=== PATIENT | male | born 2005 | race Asian ===

== ENCOUNTER 2023-10-31 22:46 | Emergency (ER) | payer OTHER ==
[~2023-10-31] VITALS: Ht 188 cm; Wt 70.3 kg
[2023-11-01] MEDS ORDERED: PANTOPRAZOLE 40 MG VIAL ONE (00:50)
[2023-11-01] MEDS ORDERED: LIDOCAINE VISCOUS 2% UD 15 ML UDC ONE (00:51)
[2023-11-01] MEDS ORDERED: MAG HYDROX/AL HYDROX/SIMETH 30 ML UDC ONE (00:51)
[2023-11-01] MEDS: MAG HYDROX/AL HYDROX/SIMETH 30 ML UDC PO ONE (01:01)
[2023-11-01] MEDS: IV NS 0.9% 1,000 ML BAG IV ONE (01:01)
[2023-11-01] MEDS: LIDOCAINE VISCOUS 2% UD 15 ML UDC MM ONE (01:01)
[2023-11-01] MEDS: PANTOPRAZOLE 40 MG VIAL IV ONE (01:01)
[2023-11-01 01:06] LABS: BASOPHILS % (AUTO) 0.1 % (0.0-2.0); EOSINOPHILS # (AUTO) 0.1 K/uL (0.0-0.7); EOSINOPHILS % (AUTO) 2.2 % (0.0-6.0); HEMATOCRIT 45 % (39-51); HEMOGLOBIN 14.8 g/dL (13.5-17.5); LYMPHOCYTES # (AUTO) 1.7 K/uL (0.8-4.8); MEAN CORPUSCULAR HEMOGLOBIN 30 PG (26.0-33.0); MEAN CORPUSCULAR HGB CONC 33 g/dl (31.0-36.0); MEAN CORPUSCULAR VOLUME 91 fL (80-96); MONOCYTES # (AUTO) 0.4 K/uL (0.1-1.30); MONOCYTES % (AUTO) 6.2 % (2.0-12.0); NEUTROPHILS # (AUTO) 4.3 K/uL (1.8-8.9); NEUTROPHILS % (AUTO) 65.5 % (43.0-81.0); PLATELET COUNT (AUTO) 220 K/uL (150-450); RED BLOOD CELL COUNT(AUTO) 4.94 MIL/uL (4.5-6.0); RED CELL DISTRIBUTION WIDTH 13.3 % (11.5-15.0); WHITE BLOOD COUNT (AUTO) 6.5 K/uL (4.3-11.0)
[2023-11-01 01:40] LABS: ALBUMIN 3.8 g/dL (3.4-5.0); BILIRUBIN,DIRECT 0.1 mg/dL (0.0-0.2); BILIRUBIN,TOTAL 0.6 mg/dL (0.2-1.0); CALCIUM, SERUM 9.7 mg/dL (8.5-10.1); CREATININE 1.1 mg/dL (0.6-1.3); POTASSIUM 3.9 mmol/L (3.5-5.1); TOTAL PROTEIN, SERUM 7.8 g/dL (6.4-8.2)
[2023-11-01] MEDS ORDERED: PANT40TA2 PO (02:11)
[2023-11-01 02:40] VITALS: BP 152/78; TEMP 98.1; O2SAT 100
== END 2023-11-01 02:40 | disposition home or self-care (01) ==
LOC: ER 22:52
DX: R10.13 Epigastric pain (principal); R03.0 Elevated blood-pressure reading, without diagnosis of hypertension
CPT/HCPCS: 99285; 96374; 76705; 96361; 93005; 85025; 80048; 80076; 36415; J7030; J2470

== ENCOUNTER 2024-02-10 23:49 | Emergency (ER) | payer OTHER ==
[~2024-02-10] VITALS: Ht 185.4 cm; Wt 68.0 kg
[~2024-02-10 23:49] MED LIST: PANT40TA2 PO
[2024-02-11 00:12] VITALS: TEMP 98.1
[2024-02-11] MEDS ORDERED: CYCLOBENZAPRINE 10 MG TABLET ONE (00:30)
[2024-02-11] MEDS ORDERED: IBUPROFEN 400 MG TABLET ONE (00:30)
[2024-02-11] MEDS: IBUPROFEN 400 MG TABLET PO ONE (00:35)
[2024-02-11] MEDS: CYCLOBENZAPRINE 10 MG TABLET PO ONE (00:35)
[2024-02-11 01:51] VITALS: BP 141/78; O2SAT 99
== END 2024-02-11 01:51 | disposition home or self-care (01) ==
LOC: ER 23:51
DX: S13.4XXA Sprain of ligaments of cervical spine, initial encounter (principal); S09.90XA Unspecified injury of head, initial encounter; M25.551 Pain in right hip; G44.309 Post-traumatic headache, unspecified, not intractable; Z79.899 Other long term (current) drug therapy; V43.52XA Car driver injured in collision with other type car in traffic accident, initial encounter; Y93.89 Activity, other specified; Y92.488 Other paved roadways as the place of occurrence of the external cause; Y99.8 Other external cause status
CPT/HCPCS: 70450-TC; 73502

== ENCOUNTER 2024-04-23 02:03 | Emergency (ER) | payer MEDICAID, OTHER ==
[~2024-04-23] VITALS: Ht 182.9 cm; Wt 70.3 kg
[2024-04-23 02:20] VITALS: BP 142/84; TEMP 98.1
[2024-04-23 06:48] VITALS: O2SAT 98
== END 2024-04-23 06:52 | disposition home or self-care (01) ==
LOC: ER 02:09
DX: S80.212A Abrasion, left knee, initial encounter (principal); M25.562 Pain in left knee; R00.2 Palpitations; Z79.899 Other long term (current) drug therapy; X58.XXXA Exposure to other specified factors, initial encounter; Y93.67 Activity, basketball; Y92.310 Basketball court as the place of occurrence of the external cause; Y99.8 Other external cause status
CPT/HCPCS: 73564-TC

== ENCOUNTER 2024-06-25 09:11 | Emergency (ER) | payer OTHER ==
[~2024-06-25] VITALS: Ht 185.4 cm; Wt 68.2 kg
[2024-06-25 09:29] VITALS: BP 125/81; TEMP 98; O2SAT 99
[2024-06-25] MEDS ORDERED: CETI10CA8 PO (09:43)
[2024-06-25] MEDS ORDERED: AMOX-430 PO (09:43)
== END 2024-06-25 09:49 | disposition home or self-care (01) ==
LOC: ER 09:13
DX: J32.9 Chronic sinusitis, unspecified (principal); Z79.899 Other long term (current) drug therapy